=== PATIENT | female | born 2000 | race Caucasian/White ===

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

== ENCOUNTER 2020-02-01 22:03 | Emergency (ER) | payer OTHER ==
[2020-02-01 22:14] VITALS: RESP 18; TEMP 98.8
[2020-02-01] MEDS ORDERED: ACETAMINOPHEN TAB 325 MG TAB PO STA (22:39)
[2020-02-01] MEDS ORDERED: IBUPROFEN 600 MG TAB PO STA (22:39)
--- NOTE | 2020-02-01 23:18 | XR ---
EXAMINATION TYPE: XR knee complete RT DATE OF EXAM: 02/01/2020 COMPARISON: 01/13/2019 HISTORY: Pain TECHNIQUE: 3 views FINDINGS: There is previous reconstructive surgery noted. Joint spaces are normal. I see no fracture nor dislocation. There is no sign of right knee joint effusion. IMPRESSION: Previous surgery. Otherwise negative exam. Normal joint spaces.
--- NOTE | 2020-02-01 23:22 | ED ---
Lower Extremity Injury HPI - General Chief Complaint: Extremity Injury, Lower Stated Complaint: R Knee Injury Time Seen by Provider: 02/01/20 22:21 Source: patient Mode of arrival: ambulatory Limitations: no limitations - History of Present Illness Initial Comments: 19-year-old female patient presents to the emergency department today for evaluation of right knee pain. Patient states earlier today she was doing a back flip in her backyard when she fell and landed on her right knee wrong. States she heard a popping sounds coming from the knee. States she has had injury to this knee in the past with subsequent surgery for repair. States that she has increased pain when she fully extends the leg. She is able to flex the leg. She is able to ambulate. Denies numbness or tingling to the leg. Denies hitting her head or losing consciousness. Denies any other injuries. Patient denies any headache, neck pain, back pain, chest pain, shortness of breath, dizziness, weakness, abdominal pain, nausea, vomiting, or difficulties with bowel movements or urination. - Related Data Home Medications Medication Instructions Recorded Confirmed Apri Control 1 tab PO HS 01/26/19 01/29/19 Previous Rx's Medication Instructions Recorded Hydrocodone/Acetaminophen [[place] 1 each PO Q6HR PRN #28 tab 01/29/19 5-325] Ibuprofen 800 mg PO Q6HR PRN #30 tablet 01/29/19 Allergies Allergy/AdvReac Type Severity Reaction Status Date / Time No Known Allergies Allergy Verified 02/01/20 22:14 Review of Systems ROS Statement: Those systems with pertinent positive or pertinent negative responses have been documented in the HPI. ROS Other: All systems not noted in ROS Statement are negative. Past Medical History Past Medical History: No Reported History History of Any Multi-Drug Resistant Organisms: None Reported Past Surgical History: Orthopedic Surgery Past Psychological History: No Psychological Hx Reported Smoking Status: Never smoker Past Alcohol Use History: None Reported Past Drug Use History: None Reported General Exam Limitations: no limitations General appearance: alert, in no apparent distress, other (This is a well- developed, well-nourished adult female patient in no acute distress. Vital signs upon presentation are temperature 98.8F, pulse 100, respirations 18, blood pressure 135/87, pulse ox 100% on room air.) Neck exam: Present: normal inspection, full ROM, other (Nontender, no step-off, no deformity to firm midline palpation of the posterior cervical spine. Full range of motion without pain or limitation.). Absent: tenderness, meningismus, lymphadenopathy Respiratory exam: Present: normal lung sounds bilaterally. Absent: respiratory distress, wheezes, rales, rhonchi, stridor Cardiovascular Exam: Present: regular rate, normal rhythm, normal heart sounds. Absent: systolic murmur, diastolic murmur, rubs, gallop, clicks Extremities exam: Present: full ROM, tenderness (Over the posterior knee), normal capillary refill, other (There is mild soft tissue swelling surrounding the right knee. There is laxity with valgus and varus maneuvers. Skin to the right leg is pink, warm, dry. Cap refills less than 3 seconds. Pedal pulses 2+ and equal bilaterally.). Absent: normal inspection, pedal edema, joint swelling, calf tenderness Neurological exam: Present: alert, oriented X3, CN II-XII intact Psychiatric exam: Present: normal affect, normal mood Skin exam: Present: warm, dry, intact, normal color. Absent: rash Course Vital Signs 02/01/20 02/01/20 22:10 23:29 Temperature 98.8 F 98.8 F Pulse Rate 100 98 Respiratory 18 18 Rate Blood Pressure 135/87 122/87 O2 Sat by Pulse 100 100 Oximetry Medical Decision Making - Medical Decision Making 19-year-old female patient presents to the emergency department today for evaluation of right knee injury after trying to do a back flip. Physical examination did reveal mild soft tissue swelling. Posterior knee tenderness. X-ray was obtained and showed no acute abnormalities. Patient does have a orthopedic splint that she is wearing. She is ambulatory. She'll be discharged to follow-up with the primary care physician and her search specialist for recheck in 1-2 days. Return parameters were discussed in detail. She verbal izes understanding and agrees with this plan. - Radiology Data Radiology results: report reviewed, image reviewed 3 views of the right knee are obtained. Report is reviewed in its entirety. Impression by Dr. Fernandez shows previous surgery. Otherwise negative exam. Normal joint spaces. Disposition Clinical Impression: Right knee injury Disposition: HOME SELF-CARE Condition: Good Instructions (If sedation given, give patient instructions): Knee Sprain (ED) Additional Instructions: Follow up with search specialist for further evaluation of your knee pain. Follow up with your primary care physician for recheck in 1-2 days. Return to the emergency department immediately for any new, worsening, or concerning symptoms. Is patient prescribed a controlled substance at d/c from ED?: No Referrals: Bull Cao MD [Primary Care Provider] - 1-2 days Time of Disposition: 23:22
[2020-02-01 23:30] VITALS: BP 122/87; PULSE 98
== END 2020-02-01 23:30 | disposition home or self-care (01) ==
LOC: EC 22:03
DX: S89.91XA Unspecified injury of right lower leg, initial encounter (principal); W18.39XA Other fall on same level, initial encounter; Y93.79 Activity, other specified sports and athletics; Y92.89 Other specified places as the place of occurrence of the external cause
CPT/HCPCS: 73562; 99283; L1830